=== PATIENT | male | born 1990 | race African-American/Black ===

== ENCOUNTER 2016-12-07 18:58 | Emergency (ER) | payer SELFPAY ==
[~2016-12-07] VITALS: Ht 165.1 cm; Wt 95.3 kg
[2016-12-07 19:49] LABS: Basophils # (auto) 0.1 uL; Basophils % (auto) 0.8 % (0.0-2.0); Eosinophils # (auto) 0.1 uL; Hematocrit 49.6 % (41.0-53.0); Lymphocytes # (auto) 2.9 uL; Lymphocytes % (auto) 26.1 % (10.0-50.0); Mean Corpuscular Hgb Conc. 34.2 g/dL (32.0-36.0); Mean Corpuscular Volume 90.4 fL (80.0-100.0); Mean Platelet Volume 8.5 fL (7.4-10.4); Monocytes # (auto) 0.7 uL; Monocytes % (auto) 6.5 % (0.0-12.0); Neutrophils # (auto) 7.3 uL; Neutrophils % (auto) 65.6 % (37.0-80.0); Platelet Count (auto) 307 10^3/uL (140-450); Red Cell Distribution Width 13.9 % (11.6-16.0); White Blood Cell 11.1 10^3/uL (4.4-10.8)
[2016-12-07 20:26] LABS: Albumin 4.1 g/dL (3.4-5.0); Alkaline Phosphatase 76 U/L (45-117); Anion Gap 8 (5-15); Aspartate Aminotransferase 17 U/L (15-37); Bilirubin, Total 0.4 mg/dL (0.2-1.0); Blood Urea Nitrogen 12 mg/dL (7-18); Calcium 8.8 mg/dL (8.5-10.1); Carbon Dioxide 27 mmol/L (21-32); Chloride 111 mmol/L (98-107); GFR African American 106 mL/min; GFR Non-African American 88 mL/min; Glucose 87 mg/dL (74-106); Magnesium 2.4 mg/dL (1.6-2.6); Potassium 4.1 mmol/L (3.5-5.1); Sodium 146 mmol/L (136-145); Total Protein 7.7 g/dL (6.4-8.2)
[2016-12-08 01:19] VITALS: BP 138/72
[2016-12-08] MEDS ORDERED: LORazepam 0.5 MG TAB ONE (01:22)
[2016-12-08] MEDS ORDERED: GABAPENTIN 400 MG CAP ONE (01:26)
[2016-12-08] MEDS ORDERED: LORazepam 0.5 MG TAB PO ONE (01:30)
[2016-12-08] MEDS ORDERED: GABAPENTIN 400 MG CAP PO ONE (01:30)
== END 2016-12-08 01:44 | disposition home or self-care (01) ==
LOC: ER 19:04
DX: F10.239 Alcohol dependence with withdrawal, unspecified (principal); R07.89 Other chest pain; R51 Headache; F17.210 Nicotine dependence, cigarettes, uncomplicated; F12.10 Cannabis abuse, uncomplicated
CPT/HCPCS: 36415; 80053; 83735; 84484; 85025; 93005

== ENCOUNTER 2022-06-07 13:40 | Emergency (ER) | payer MEDICAID ==
[~2022-06-07] VITALS: Ht 167.6 cm; Wt 119.7 kg
[2022-06-07 14:16] VITALS: BP 161/108
[2022-06-07] MEDS ORDERED: CYCLOBENZAPRINE HCL 10 MG TAB PO ONE (14:30)
[2022-06-07] MEDS ORDERED: KETOROLAC TROMETH 30 MG/ML 1ML VIAL IM ONE (14:30)
== END 2022-06-07 19:55 | disposition home or self-care (01) ==
LOC: ER 13:40
DX: S33.5XXA Sprain of ligaments of lumbar spine, initial encounter (principal); F17.210 Nicotine dependence, cigarettes, uncomplicated; F12.10 Cannabis abuse, uncomplicated; M79.18 Myalgia, other site; Z90.49 Acquired absence of other specified parts of digestive tract; W06.XXXA Fall from bed, initial encounter; Y93.89 Activity, other specified; Y92.89 Other specified places as the place of occurrence of the external cause; Y99.8 Other external cause status
CPT/HCPCS: 96372; 99283; J1885

== ENCOUNTER 2022-12-16 03:26 | Emergency (ER) | payer MEDICAID, OTHER ==
[~2022-12-16] VITALS: Ht 167.6 cm; Wt 117.3 kg
[2022-12-16 04:17] VITALS: BP 174/119
[2022-12-16] MEDS ORDERED: KETOROLAC TROMETH 60MG/2ML VIAL IM ONE (07:15)
[2022-12-16] MEDS ORDERED: IBUP800T27 PO (07:23)
[2022-12-16] MEDS ORDERED: METH750T22 PO (07:23)
== END 2022-12-16 07:27 | disposition home or self-care (01) ==
LOC: ER 03:26
DX: S46.911A Strain of unspecified muscle, fascia and tendon at shoulder and upper arm level, right arm, initial encounter (principal); F17.210 Nicotine dependence, cigarettes, uncomplicated; F12.90 Cannabis use, unspecified, uncomplicated; Z90.49 Acquired absence of other specified parts of digestive tract; V49.88XA Car occupant (driver) (passenger) injured in other specified transport accidents, initial encounter; Y93.89 Activity, other specified; Y92.89 Other specified places as the place of occurrence of the external cause; Y99.8 Other external cause status
CPT/HCPCS: 73030; 96372; 99283; J1885